=== PATIENT | male | born 1950 | race Caucasian/White ===

== ENCOUNTER 2019-12-13 07:23 | Day surgery (SDC) | payer MEDICARE ==
[~2019-12-13] VITALS: Ht 172.7 cm; Wt 72.6 kg
[2019-12-13] MEDS ORDERED: ASPIRIN325 MG PO (08:00)
[2019-12-13] MEDS ORDERED: KAPSPARGO SPRIN50 MG PO (08:00)
[2019-12-13] MEDS ORDERED: ZESTRIL40 MG PO (08:01)
[2019-12-13] MEDS ORDERED: ADVIL LIQUI-GE200 MG PO (08:01)
[2019-12-13] MEDS ORDERED: ATORVASTATIN CA20 MG PO (08:01)
[2019-12-13] MEDS ORDERED: PERCOCET 5-3251 EACH PO (08:02)
[2019-12-13] MEDS ORDERED: AMBIEN5 MG PO (08:02)
--- NOTE | 2019-12-13 09:08 | NUR ---
12/13/19 0908 Di Asif 0857 PT ARRIVED IN PACU SLEEPY. ABD SOFT. 0905 PT AWAKENS TO VERBAL STIMULI, THEN FALLS BACK TO SLEEP.
--- NOTE | 2019-12-13 09:39 | NUR ---
PT ALERT, ORIENTED AND NOT VERY HAPPY ABOUT HAVING THE SCOPE. DID NOT LIKE PREP AT ALL, AND THE WHOLE CONCEPT OF THE COLONOSCOPY JUST DOESN'T SEEM TO BE ANYTHING HE SAID HE WOULD EVER DO AGAIN. WORKED TO BE ENCOURAGING, AND TRY AND RELATE TO HIM MY PERSONAL EXPERIENCE. PT WAS NOT RUDE, OBSESSIVE OR DISRESPECTFUL BY ANY MEANS. PT DID EXPRESS SEVERAL TIMES THE THOUGHT OF WAKING UP DURING THE PROCEDURE. GAVE A BLESSING, PT THANKED ME. WILL FOLLOW NEEDED
--- NOTE | 2019-12-14 06:12 | OR ---
[facility] [address], [place] [address] Signed DATE OF OPERATION: 12/13/2019 SURGEON: Nya Millan MD PREOPERATIVE DIAGNOSES: 1. Left lower quadrant abdominal pain. 2. Diverticulosis. POSTOPERATIVE DIAGNOSES: 1. Moderate sigmoid diverticulosis. 2. Minimal internal hemorrhoids. 3. Anal skin tags x2. PROCEDURE: Colonoscopy without biopsy. ESTIMATED BLOOD LOSS: None. INDICATIONS: Grant is a 69-year-old gentleman, asked to see me for his initial colonoscopy. He mentions intermittent left lower quadrant abdominal pain for years. Many years ago, he had x-rays done and was told he had diverticulosis. He said the pain in the left lower quadrant never seems to go away completely. He told me there is no family history of colon cancer or polyps to his knowledge. In the office, I gave him a pamphlet on colonoscopy. We looked at that together along with the risks including, but not limited to gas bloating, crampy abdominal pain, bleeding, perforation requiring surgery, and missed diagnosis. We also reviewed the need for IV conscious sedation. He had expressed understanding and wished to proceed. PROCEDURE NOTE: Grant was taken into our endoscopy suite and placed in the left lateral decubitus position. He was given a total of 6 mg of Versed and 125 mcg of fentanyl to cover the case. A digital rectal exam was performed. He does have a couple of anal skin tags. His prostate is mildly enlarged and indurated with the left being more prominent than the right. The adult colonoscope was introduced and advanced all around into the cecum under direct visualization of camera without difficulty. He did require little extra sedation for the procedure. His prep was quite good. We could see the appendiceal orifice and the ileocecal valve. We took pictures throughout for photodocumentation. The scope was slowly withdrawn. He does have diverticula in the left and sigmoid colon. Electronically Signed By: NYA MILLAN MD 12/14/19 0612 PATIENT NAME: GRANT VILLA OPERATIVE REPORT DATE OF : 46 REPORT #: [id number] PHYSICIAN: NYA MILLAN MD PCP: BLANCHE MOSES REPORT IS CONFIDENTIAL AND NOT TO BE RELEASED WITHOUT AUTHORIZATION [facility] [address] [place] [id number] Signed They were moderate in size, [id number] in number, and scattered about. The rectum was unremarkable. The scope had been retroflexed. He has minimal internal hemorrhoid tissue. After this, the gas was suctioned out and the colonoscope removed. Grant tolerated the procedure quite well. RECOMMENDATIONS: Grant is welcome to follow up in 10 years for a repeat colonoscopy so long as his health holds up. MD LEIDY Cho/KELLIL /[id number] cc: MD Blanche Cho PA Copies: NYA MILLAN MD, LINDA PA ~ Electronically [place]: [place] [id number] PATIENT NAME: GRANT VILLA OPERATIVE REPORT DATE OF : 46 REPORT #: [id number] PHYSICIAN: NYA MILLAN MD PCP: BLANCHE MOSES REPORT IS CONFIDENTIAL AND NOT TO BE RELEASED WITHOUT AUTHORIZATION
== END 2019-12-13 09:35 | disposition home or self-care (01) ==
LOC: DS 07:23 → OPS 07:23 → DS 09:00 → OPS 09:35
PROVIDERS: Colon & Rectal Surgery
PROC: 0DJD8ZZ Inspection of Lower Intestinal Tract, Via Natural or Artificial Opening Endoscopic (ICD-10-PCS; principal; 2019-12-13 09:00)
DX: K64.8 Other hemorrhoids (principal); K64.4 Residual hemorrhoidal skin tags; K57.30 Diverticulosis of large intestine without perforation or abscess without bleeding; N40.0 Benign prostatic hyperplasia without lower urinary tract symptoms; G47.00 Insomnia, unspecified; I10 Essential (primary) hypertension; E78.5 Hyperlipidemia, unspecified; I25.10 Atherosclerotic heart disease of native coronary artery without angina pectoris; I65.29 Occlusion and stenosis of unspecified carotid artery; Z79.82 Long term (current) use of aspirin; Z79.899 Other long term (current) drug therapy
CPT/HCPCS: 99153; G0500; J2250; J3010; J7121